=== PATIENT | female | born 1955 | race Caucasian/White ===

== ENCOUNTER 2024-04-09 11:12 | Outpatient (CLI) | payer MEDICARE, SELFPAY ==
[2024-04-09 12:07] LABS: Toxigenic C. Diff NEGATIVE (NEGATIVE)
[2024-04-14 09:29] LABS: Fecal Fat, Ql Normal (Normal)
[2024-04-16 18:24] LABS: Calprotectin, Stool 15 mcg/g
== END 2024-04-09 11:13 | disposition home or self-care (01) ==
PROVIDERS: PCP Family Medicine; Visit Provider Nurse Practitioner Family
DX: R19.7 Diarrhea, unspecified (principal)
CPT/HCPCS: 82653; 82705; 83993; 87045; 87269; 87427; 87449; 87493

== ENCOUNTER 2024-09-25 15:52 | Emergency (ER) | payer OTHER, SELFPAY ==
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
--- OUTSIDE RECORDS SUMMARY | 2024-09-25 15:55 | XMS_ITS | Encounter Summary ---
Author Organization [facility] Address [address] [place] [address] Care Team Providers Care Health And Nutrition Specialist Name Role Phone Jyoti Ma NP Primary Care Provider Gino Wynn MD Primary Care Provider [phone] Encounter Details Date Type Department Care Team (Late st Contact Info) Description 10/06/2016 Abstract [facility] CONVERSION [address] [place] [address] , Generic ConversionMD Social History Tobacco Use Types Packs/Day Years Used Date Smoking Tobacco: Never Assessed Comments Unknown Sex and Gender Information Value Date Recorded Sex Assigned at Not on file Legal Sex Female 6:43 PM CDT Gender Identity Not on file Sexual Orientation Not on file documented as of this encounter Plan of Treatment Not on file documented as of this encounter Visit Diagnoses Not on filedocumented in this encounter Additional Health Concerns Infection Onset Date Last Indicated Resolved Time COVID-19 Rule Out 08/10/2023 08/10/2023 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
--- OUTSIDE RECORDS SUMMARY | 2024-09-25 15:55 | XMS_ITS | Clinical Summary ---
Author Organization [facility] Address [address] [place] [address] Care Team Providers Care Jump Iron Machine Presser Name Role Phone Minoo Long MD Primary Care Provider [phone] Allergies No known active allergies Medications ALPRAZolam 0.25 MG tabletIndications: Anxiety,Reactive depression Take 1 tablet (0.25 mg total) by mouth 3 (three) times daily as needed. 30 tablet 1 2 Active azithromycin (ZITHROMAX) 250 MG tabletIndications: Pneumonia due to infectious organism, unspecified laterality, unspecified part of lung TAKE 2 TABS PO DAY 1 THEN 1 TABLET DAILY 6 tablet 4 Active albuterol sulfate HFA 108 (90 Base) MCG/ACT inhalerIndications :Pneumonia due to infectious organism, unspecified laterality, unspecified part of lung Inhale 2 puffs into the lungs every 6 (six) hours as needed for Wheezing or Shortness of breath. 18 g 1 4 Active atorvastatin (LIPITOR) 20 MG tabletIndications: Hyperlipidemia, unspecified hyperlipidemia type take 1 tablet by mouth nightly at bedtime 90 tablet 1 4 Active FLUoxetine (PROZAC) 40 MG capsuleIndications :Anxiety,Reactive depression TAKE 1 CAPSULE BY MOUTH ONCE DAILY ALONG WITH A 20 MG CAPSULE FOR A TOTAL DAILY DOSE OF 60 MG 90 capsule 4 Active FLUoxetine (PROZAC) 20 MG capsuleIndications :Anxiety,Reactive depression TAKE 1 CAPSULE BY MOUTH ONCE DAILY ALONG WITH A 40 MG CAPSULE FOR A TOTAL DAILY DOSE OF 60 MG 90 capsule 4 Active Active Problems Problem Noted Date Diagnosed Date Right lower quadrant pain 06/05/2022 Overview (06/05/2022): Added automatically from request for surgery [id number] Encounter for screening colonoscopy 06/05/2022 Overview (06/05/2022): Added automatically from request for surgery [id number] Hyperlipidemia, unspecified hyperlipidemia type 02/01/2022 Pure hypercholesterolemia 08/18/2021 Acute pain of left shoulder 01/28/2021 Postmenopause 12/12/2017 Anxiety 03/09/2014 Hearing difficulty 01/19/2014 Nicotine dependence 08/19/2013 Immunizations Name Administration Dates Next Due Fluzone High Dose - >Age 65 (Prefilled Syringe) 05/11/2022 Influenza (Generic) 03/31/2020,04/11/2018 Influenza Adult (Generic) 04/19/2023,05/11/2022, 03/31/2020 PFIZER COVID-19 (ORIGINAL FO RMULATION, PURPLE CAP) mRNA, LNP-S, PF, 30 MCG/0.3 ML DOSE 09/21/2020,08/31/2020 Pneumococcal (Prevnar 20) 05/11/2022 Family History Medical History Relation Comments COPD Father Emphysema Father Heart Disease Father Parkinson's Disease Father COPD Mother Heart Disease Mother Kidney Disease Mother Relation Status Comments Father Mother Social History Tobacco Use Types Packs/Day Years Used Date Smoking Tobacco: Former Cigarettes 0.5 50 1 06/25/1971 - 04/25/2022 Smokeless Tobacco: Never Tobacco Cessation:Counseling Given: No Comments:not ready to quit Alcohol Use Standard Drinks/Week Comments Yes 0 (1 standard drink = 0.6 oz pur e alcohol) rarely once per year PHQ-2 Answer Date Recorded Patient Health Questionnaire-2 Score 1 12/12/2022 Comments No Sex and Gender Information Value Date Recorded Sex Assigned at Not on file Legal Sex Female 6:43 PM CDT Gender Identity Not on file Sexual Orientation Not on file Last Filed Vital Signs Vital Sign Reading Time Taken Comments Blood Pressure 103/69 08/10/2023 10:22 AM SENIOR RESIDENT CARE DIRECTOR Pulse 92 08/10/2023 10:22 AM SENIOR RESIDENT CARE DIRECTOR Temperature 37 C (98.6 F) 08/10/2023 10:22 AM SENIOR RESIDENT CARE DIRECTOR Respiratory Rate 16 08/10/2023 10:22 AM SENIOR RESIDENT CARE DIRECTOR Oxygen Saturation 98% 08/10/2023 10:22 AM SENIOR RESIDENT CARE DIRECTOR Inhaled Oxygen Concentration - - Weight 59 kg (130 lb) 08/10/2023 10:22 AM SENIOR RESIDENT CARE DIRECTOR Height 167.6 cm (5' 6 ) 08/10/2023 10:22 AM SENIOR RESIDENT CARE DIRECTOR Body Mass Index 20.98 08/10/2023 10:22 AM SENIOR RESIDENT CARE DIRECTOR Plan of Treatment Health Maintenance Due Date Last Done Comments Hepatitis C 1974 DTaP, Tdap and Td Vaccines (1 - Tdap) 1975 Zoster Vaccines (1 of 2) 2006 Annual Medicare Wellness Visit 2021 Dexa Scan (General) 2021 COVID-19 Vaccine (3 - season) 2024 09/21/2020, 08/31/2020 Influenza Adult (#1) 2024 04/19/2023, 05/11/2022, 05/11/2022, Additional history exists Mammogram Screening 06/13/2024 06/13/2022 PHQ-2 (Physician Inupiat) 06/25/2024 12/12/2022 RSV Immunization or 60+ Years (1 - 1-dose 75+ series) 2031 Colorectal Cancer Screening Colonoscopy (10 Years) 07/05/2032 07/05/2022, 07/05/2022 Pneumococcal Vaccine: 65+ Years Completed 05/11/2022 Meningococcal B Vaccine Aged Out No l onger eligible based on patient's age to complete this topic Meningococcal Vaccine Aged Out No raysa pam eligible based on patient's age to complete this topic RSV Immunizations Under 20 Months Aged Out No longer eligible based on patient's age to complete this topic Procedures Procedure Name Priority Date/Time Associated Diagnosis Comments COLONOSCOPY Routine 07/05/2022 8:00 AM SENIOR RESIDENT CARE DIRECTOR MG SCREENING W COSME THEE DIGI Routine 06/13/2022 9:38 AM SENIOR RESIDENT CARE DIRECTOR Encounter for screening mammogram for breast cancer from Last 3 Months or Most Recently Relevant to Health Maintenance Results * MG SCREENING W COSME THEE DIGI (06/13/2022 9:38 AM SENIOR RESIDENT CARE DIRECTOR) Anatomical Region Laterality Modality Breast Bilateral Mammography 06/13/2022 3:52 PM SENIOR RESIDENT CARE DIRECTOR Narrative 06/13/2022 3:58 PM SENIOR RESIDENT CARE DIRECTOR IMAGING STUDIES: Bilateral screening mammograms with computer-aided detection with 2-D and 3-D imaging. Tomosynthesis. DATE: 06/13/2022 9:24 AM HISTORY: screening for breast cancer . COMPARISON: 05/12/2011. TISSUE TYPE: The breast tissue is heterogeneously dense, which may obscure small masses. FINDINGS: 1. Moderate fibroglandular tissue pattern is present. Benign nodularity. Benign calcifications. 2. No malignant microcalfcifications, new dominant masses, or architectural distortion. 3. No skin thickening or nipple retraction. Axillary regions are within normal limits. IMPRESSION: 1. No mammographic evidence of malignancy. 2. Assessment: ACR BI-RADS 2 - BENIGN FINDING(S) 3 .Routine Screening Bilateral MQSA BI-RADS Categories: Category 0 - needs additional imaging evaluation. Category 1 - negative. Category 2 - benign findings. Category 3 - probably benign findings, but short interval follow-up is recommended. Category 4 - suspicious abnormality and biopsy should be considered though the lesion may well be benign. Category 5 - highly suggestive of malignancy and appropriate action should be taken. Category 6 - known biopsy-proven malignancy A) A negative report should not delay a biopsy if a dominant or clinically suspicious mass is present. B) Adenosis and dense breasts may obscure an underlying neoplasm. C) Study interpreted with computer aided detection. Ordered By: MINOO LONG Interpreted By: Goldy Paul, 06/13/2022 3:52 PM us Minoo Long MD MAMMO Final Resul t from Last 3 Months or Most Recently Relevant to Health Maintenance Insurance [employer] Care Teams Jump Iron Machine Presser Relationship Specialty Start [place] [id number] [place], [place] [id number] PCP - General FAMILY PRACTICE 08/20/19
--- OUTSIDE RECORDS SUMMARY | 2024-09-25 15:55 | XMS_ITS | Encounter Summary ---
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
--- OUTSIDE RECORDS SUMMARY | 2024-09-25 15:55 | XMS_ITS | Data Portability ---
Author Organization [facility] [place] Address [address] [place] [address] Assessment Encounter Date Assessment Date Assessment LastModified by Organization Details LastModified Time 11/08/2023 11/08/2023 Annual gynecological exam performed. Patient will come back in a year unless there are new symptoms. [email or web address] Not available 11/08/2023 10:24:00 Plan of Treatment Reminders Order Date Submit Date Provider Last Modified By Organization Details Last Modified Time Details Appointments None recorded. Lab None recorded. Referral None recorded. Procedures None recorded. Surgeries None recorded. Imaging DEXA, axial skeleton + vertebral fracture assessment 2023 [facility], [address], [place], [address], 05:01:27 MAMMO, diagnostic, digital, bilateral - bilateral breast tenderness, lump/tender ness on right breast around 12 oclock 2023 024 [facility], [address], [place], [address], 05:01:27 US, breast, bilateral 2023 024 EMELYN Not available 05:01:27 Medication Orders None recorded. Patient TargetsNo targets recorded. Patient InstructionsNo instructions recorded. Reason for Referral None Reported. Problems Name Problem SNOMED Code Status Onset Date Resolution Date Notes Provider Name and Address Organization Details Recorded Time Specializ ed medical examinati on Active 2013 Gynecologi emi Examinatio n;Recorded Elsewhere: No Locatio n: [facility]: EHR Chroni c: N Practice ID: 0001 Billa ble Time: 08:30:00 AM Not Available [facility] 0 22:01:[address] Concept Active 2014 Encntr for general adult medical exam w/o abnormal findings;R ecorded Elsewhere: No Locatio n: [facility]: EHR Chroni c: N Practice ID: [id number] Billa ble Time: 11:30:00 AM Not Available [facility] 0 22:01:14 Screening for malignant neoplasm of rectum Active 2011 Screening for malignant neoplasms of the rectum;Rec orded Elsewhere: No Locatio n: [facility]: EHR Chroni c: N Practice ID: 0001 Billa ble Time: 08:30:00 AM Not Available [facility] 0 22:01:14 Adult health examinati on Active 2013 ROUTINE MEDICAL EXAM;Recor ded Elsewhere: No Locatio n: [facility]: EHR Chroni c: N Practice ID: [id number] Billa ble Time: 08:30:00 AM Not Available [facility] 0 22:01:14 Microscop ic hematuria 351780873 Active 2011 MICROSCOPI C HEMATURIA; Recorded Elsewhere: No Locatio n: [facility]: EHR Chroni c: N Practice ID: [id number] Billa ble Time: 08:30:00 AM Not Available [facility] 0 22:01:14 Insomnia 600415178 Active 2011 Insomnia, Other;Mamadou rded Elsewhere: No Locatio n: [facility]: EHR Chroni c: N Practice ID: [id number] Billa ble Time: 10:30:00 AM Not Available [facility] 0 22:01:15 Screening for malignant neoplasm of cervix Active 2011 Screening for malignant neoplasms of the cervix;Rec orded Elsewhere: No Locatio n: [facility]: EHR Chroni c: N Practice ID: 0001 Billa ble Time: 08:30:00 AM Not Available [facility] 0 22:01:15 Depressiv e disorder 68284419 Active 2011 Depressive disorder, not elsewhere classified ;Practice ID: 0001 Not Available [facility] 0 22:01:[address] Concept Active 2014 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 Procedures Surgical History Date Name Laterality Status Provider Name and Address Organization Details Recorded Time 024 Date of Last Mammogram completed [facility] 11/08/2023 10:26:01 024 Date of Last Colonoscopy completed [facility] 11/08/2023 10:26:01 024 completed [facility] 11/08/2023 10:26:01 023 Colonoscopy completed [facility] 11/08/2023 10:31:42 998 Partial Hysterectomy completed [facility] 11/08/2023 10:31:35 cardiac catheterization completed MARSHALL Valerio [address], [place], [address], [facility] 11/08/2023 10:37:11 loop electrosurgical excision procedure completed MARSHALL Valerio [address], [place], [address], [facility] 11/08/2023 11:09:03 Imaging Results None recorded. Procedure Notes None recorded. Medical Equipment None Reported. Allergies No known drug allergies Medications Name Sig Start Date Stop Date Status Note LastModified by Organization Details LastModified Time fluoxetin e 40 mg capsule TAKE 1 CAPSULE BY MOUTH ONCE DAILY ALONG WITH A 20MG CAPSULE FOR A TOTAL DAILY DOSE OF 60MG 11/07 completed Not Available Not Available Not Available atorvasta tin 20 mg tablet TAKE 1 TABLET BY MOUTH NIGHTLY AT BEDTIME active Not Available Not Available No t Available azithromy gian 250 mg tablet TAKE 2 TABLETS BY MOUTH ON DAY 1, AND THEN TAKE 1 TABLET BY MOUTH ONCE A DAY ON DAY 2 THROUGH DAY 5 11/07 completed Not Available Not Available Not Available alprazola m 0.25 mg tablet active Not Available Not Available Not Available Metrogel Vaginal 0.75 % (37.5 mg/5 gram) insert 1 applicat orful (37.5MG) by vaginal route every day at bedtime 03/04 completed Prescrib ed Elsewher e: No [facility]at [facility] By: travis allen DateTime : 05/08/20 13 08:39:17 AM Not Available Not Available Not Available amitripty line 25 mg tablet take 1 tablet (25MG) by oral route every day at bedtime 11/28 completed Prescrib ed Elsewher e: No Locat ion: [facility] By: garrett lucia DateTime : 11/29/19 12 10:30:00 AM Not Available Not Available Not Available Glucosami ne 500 mg tablet 11/07 completed Prescrib ed Elsewher e: Yes Loca tion: [facility]ify By: garrett lucia DateTime : 11/28/19 12 10:36:17 PM Not Available Not Available Not Available albuterol sulfate HFA 90 mcg/actua tion aerosol inhaler INHALE 2 PUFFS BY MOUTH EVERY 6 HOURS NEEDED FOR WHEEZING FOR SHORTNES S OF BREATH active Not Available Not Available No t Available fluoxetin e 20 mg capsule TAKE 1 CAPSULE BY MOUTH ONCE DAILY ALONG WITH 40MG CAPSULE FOR TOTAL DAILY DOSE OF 60MG 11/07 completed Not Available Not Available Not Available Cymbalta 20 mg capsule,d elayed release take 1 capsule by oral route 2 times every day 11/28 completed Prescrib ed Elsewher e: Yes Loca [facility] By: garertt Del Castilloou nter DateTime : 11/28/19 12 10:36:17 PM Not Available Not Available Not Available Fish Oil 100 mg-160 mg-1,000 mg capsule 11/07 completed Prescrib dinesh crews: Yes Loca tion: [facility] odify By: travis allen DateTime : 02/19/20 08:30:00 AM Not Available Not Available Not Available fluoxetin e 60 mg tablet active Not Available Not Available Not Available Vitals Date Recorded Body weight Body mass index (BMI) Body height Systolic blood pressure Diastolic blood pressure Provider Name and Address Organization Details Last Updated DateTime 11/08/2023 25264.97 g 21.8 kg/m2 167.64 cm 136 mm[Hg] 76 mm[Hg] Mouna Santana [facility] 10:25:39 Social History Question Answer Notes LastModified by Organizat ion Details LastModified Time Tobacco Smoking Status Current Every Day Smoker Mounamarcell Santana null, [facility] 11/08/2023 10:31:19 What Is Your Level Of Alcohol Consumption? Occasional Information not available 11/08/2023 How Many Years Have You Consumed Alcohol? 45 Information not available 11/08/2023 Are You Blind Or Do You Have Difficulty Seeing? No Information not available 11/08/2023 What Is Your Level Of Caffeine Consumption? Heavy Information not available 11/08/2023 How Much Tobacco Do You Chew? None Information not available 11/08/2023 In The 14 Days Before Symptom Onset, Have You Had Close Contact With A Laboratory-confir med COVID-19 While That Case Was Ill? No Information not available 11/08/2023 In The 14 Days Before Symptom Onset, Have You Had Close Contact With A Person Who Is Under Investigation For COVID-19 While That Person Was Ill? No Information not available 11/08/2023 Have You Been To An Area Known To Be High Risk For COVID-19? No Information not available 11/08/2023 Are You Deaf Or Do You Have Serious Difficulty Hearing? Yes Information not available 11/08/2023 What Type Of Diet Are You Following? REGULAR Information not available 11/08/2023 What Is The Highest Grade Or Level Of School You Have Completed Or The Highest Degree You Have Received? [id number] Information not available 11/08/2023 What Is Your Occupation? Retired Information not available 11/08/2023 Are There Any Guns Present In Your Home? No Information not available 11/08/2023 Do You Use Protection During Sex? No Information not available 11/08/2023 Do You Use Your Seat Belt Or Car Seat Routinely? Yes Information not available 11/08/2023 Do You Have Smoke And Carbon Monoxide Detectors In Your Home? Yes Information not available 11/08/2023 At What Age Did You Start Smoking Tobacco? 17 Information not available 11/08/2023 How Much Tobacco Do You Smoke? 1 PPD Information not available 11/08/2023 Do You Feel Stressed (tense, Restless, Nervous, Or Anxious, Or Unable To Sleep At Night)? [id number] Information not available 11/08/2023 Do You Use Any Illicit Or Recreational Drugs? No Information not available 11/08/2023 Do You Use Sunscreen Routinely? No Information not available 11/08/2023 How Many Years Have You Smoked Tobacco? 50 Information not available 11/08/2023 Have You Used IV Drugs? No Information not available 11/08/2023 Sex: Unknown Functional Status Question Answer Note LastModified by Organizat ion Details LastModified Time Are you able to walk? YESWOREST Information not available 11/08/2023 What is your exercise level? Occasional Information not available 11/08/2023 Mental Status None recorded. Family History Relationship Description Onset Age of this Age Resolved Age Notes LastModified by Organization Details LastModified Time Mother Heart disease Not available 2023 10:25:46 Mother Kidney disease Not available 2023 10:25:46 Sister Malignant tumor of breast formerly [email or web address] Not available 2023 10:25:46 Father [facility] Not available 2023 10:25:46 Father [facility] Not available 2023 10:25:46 Notes:Father: COPD, Emphysem a, Parkinson's disease, blood clots, Hypertension, Coronary artery disease Mother: pacemaker, Anemia, Hypertension Medical History Condition Response Anxiety Disorder Y Heart Problems Y Other Y High Cholesterol Y Gynecological History Statement/Question Response Date of Last Mammogram 08/29/2023 Date of LMP 08/14/1997 On BCP's at Conception? N N Was last menstrual period normal N STIs/STDs N HPV Vaccine N Colposcopy Current Control Method None Age at First Child 45 Date of Last Colonoscopy 08/10/2023 Sexually Active? N Date of DEXA bone scan Age of first menstrual cycle 10 Date of Last Pap Smear Sexual Problems? N LMP Definite 08/02/2023 N Obstetrics History GPAL:G 4 P 0 0 0 4 Type Value Living 4 Total 4 Past Encounters Encounter ID Performer Location Encounter Start Date Encounter Closed Date Diagnosis/Indication Diagnosis SNOMED-CT Code Diagnosis ICD10 Code Diagnosis Note [id number] [facility]er[facility] [address] [address] 11/08/2023 10:17:59 11/08/2023 11:28:51 Gynecologic examination 82298380 Z01.419 WWEpap updateddec lined STI screenmamm ogram UTDcolonos copy UTDroutine labs UTD/PCPdex a ordered - encouraged to schedule Take Calcium with Vitamin D daily.Do monthly self breast exams.It is advised to get annual flu shot in the fall and she could obtain at [facility] or [facility] care clinic. If you haven't received the Tdap vaccine in the last 10 years you should obtain one as well.Have mammogram yearly, bone density every 2-3 years and stay up to date on colon cancer screening .Engage in regular exercise. Avoid tobacco and illicit drugs. This lifestyle behavior pattern will lead to less health conditions and longer life span. If BMI greater than 25 dietary consult advised.Qu estions have been answered. Patient appears to understand instructio ns, but if you have any further questions call or respond to this email Breast tenderness 059169 07 N64.4 bilateral diagnostic mammogram w/ u/s ordered Screening for osteoporosis 332459341 Z13.820 Increased frequency of urination 110910698 R35.0 recommende d decreasing consumptio n of bladder irritants (reducing amount of coffee/tea intake). RTC if symptoms persist or additional symptoms occur Health Concerns Section Related Observation LastModified by Organization Detai ls LastModified Time None Recorded Concern Status LastModified by Organization Details LastModified Time None Recorded Advance Directives Directive None Recorded Payers Encounter Date Sequence Insurance Name Policy Number Policy Wray Covered Member ID Wray Member ID Guarantor Name 11/08/2023 1 [employer] (MEDICARE REPLACEMENT PPO) Delilah Monteiro [id number] Delilah Monteiro Notes Date Note Type Note Provider Name and Address Organization Details Recorded Time 11/08/2023 text/html 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 Post-MenopausalRe ported bypatient.Menopau cesia Symptoms:no menopausal symptoms; normal vaginal lubrication Vaginal Bleeding:history of menopause having occurred; no history of post menopausal bleeding Urinary Symptoms:no hematuria; no incontinence; no nocturia;urinary frequency: times during the day Vulva:no genital lesion; no vulvar atrophy Vagina:normal vaginal discharge; no vaginal atrophy Breast:no breast lump; no nipple discharge; no breast pain Sexual Complaints:no sexual complaints Psychological Symptoms:no depression; no anxiety Preventive Measures:encourag e regular mammograms starting age 40; encourage self breast examination; encourage regular exercise; encourage no tobacco use; mammogram performed within the past year; history of recent colonoscopy; needs to schedule bone densityNotes:68yo [id number] hysterectomy, one ovary remains, done in 1997. Hyst done for abnormal pap smears/precancero us cells per pt. Hx of procedure prior to hyst for abnormal paps.all paps normal after hyst per pt, last pap 7 yrs agonot currently SA, spouse has mammogram UTD : 08/2023sister with BC at age 68colonoscopy UTD: 08/10/2023exa: many years ago Bilateral breast tenderness for the past 2 months. Did notice a right breast lump a few weeks ago.Urinary frequency, drinks tea and coffee all day long - about a pot of coffee a day and teaneg dysuria, incontinence, or flank painsshe is a tobacco smoker she adopted her grandsons, 6 and 8 yr old boys Ladi Fagan, WHNP [address], [place], [address], [facility] 11/08/2023 11:20:23 OBGyn Episode Ob Episode Information Episode Created Date Number of Fetuses Patient Bloodtype Patient rh Status Prepregnancy Weight lbs Domestic Partner Domestic Partner Phone Father Name [employer] Teammate Status 11/08/19 24 1 CLOSED Fetus Data First Name Last Name Admitted to NICU Weight (g) Sex Living Outcome Pediatric Complications Fetus ID Race Codes Race Delivery Type M Full Term [id number] Vaginal Delivery Ochoa Calculation Initial Ochoa Date Initial Exam Date Initial Exam Provider Initial Ultrasound Date Last Menstrual Period Date Ultra Sound Weeks Gestation 0 Eighteen To Twenty Week Ochoa Update Ultra Sound Date Fundal Height At Umbil Quickening Date Ultra Sound Latest Weeks Gestation Final Ochoa Confirmed By Final Ochoa Confirmed Date Final Ochoa Date Ultra Sound Latest Days Gestation 0 0 Menstrual History Last Menstrual Date Menses Monthly On Bcp Conception Prior Menses Frequency Hcg Plus Date Menarche Onset Age Delivery Information Delivery Date Delivery Type Labor Anesthesia Weeks Gestation Incision Type Labor Labor Length Hrs Delivered By Post Complications Tubal Sterilization Discharge Date Comments 3 Discharge Information Feeding Method Contraceptive Method Maternal HG B and HCT Levels Ob Episode Information Episode Created Date Number of Fetuses Patient Bloodtype Patient rh Status Prepregnancy Weight lbs Domestic Partner Domestic Partner Phone Father Name [employer] Teammate Status 11/08/19 24 1 CLOSED Fetus Data First Name Last Name Admitted to NICU Weight (g) Sex Living Outcome Pediatric Complications Fetus ID Race Codes Race Delivery Type F Full Term [id number] Vaginal Delivery Ochoa Calculation Initial Ochoa Date Initial Exam Date Initial Exam Provider Initial Ultrasound Date Last Menstrual Period Date Ultra Sound Weeks Gestation 0 Eighteen To Twenty Week Ochoa Update Ultra Sound Date Fundal Height At Umbil Quickening Date Ultra Sound Latest Weeks Gestation Final Ochoa Confirmed By Final Ochoa Confirmed Date Final Ochoa Date Ultra Sound Latest Days Gestation 0 0 Menstrual History Last Menstrual Date Menses Monthly On Bcp Conception Prior Menses Frequency Hcg Plus Date Menarche Onset Age Delivery Information Delivery Date Delivery Type Labor Anesthesia Weeks Gestation Incision Type Labor Labor Length Hrs Delivered By Post Complications Tubal Sterilization Discharge Date Comments 8 Discharge Information Feeding Method Contraceptive Method Maternal HG B and HCT Levels Ob Episode Information Episode Created Date Number of Fetuses Patient Bloodtype Patient rh Status Prepregnancy Weight lbs Domestic Partner Domestic Partner Phone Father Name [employer] Teamm[employer] Status 11/08/19 24 1 CLOSED Fetus Data First Name Last Name Admitted to NICU Weight (g) Sex Living Outcome Pediatric Complications Fetus ID Race Codes Race Delivery Type F Full Term [id number] Vaginal Delivery Ochoa Calculation Initial Ochoa Date Initial Exam Date Initial Exam Provider Initial Ultrasound Date Last Menstrual Period Date Ultra Sound Weeks Gestation 0 Eighteen To Twenty Week Ochoa Update Ultra Sound Date Fundal Height At Umbil Quickening Date Ultra Sound Latest Weeks Gestation Final Ochoa Confirmed By Final Ochoa Confirmed Date Final Ochoa Date Ultra Sound Latest Days Gestation 0 0 Menstrual History Last Menstrual Date Menses Monthly On Bcp Conception Prior Menses Frequency Hcg Plus Date Menarche Onset Age Delivery Information Delivery Date Delivery Type Labor Anesthesia Weeks Gestation Incision Type Labor Labor Length Hrs Delivered By Post Complications Tubal Sterilization Discharge Date Comments 7 Discharge Information Feeding Method Contraceptive Method Maternal HG B and HCT Levels Ob Episode Information Episode Created Date Number of Fetuses Patient Bloodtype Patient rh Status Prepregnancy Weight lbs Domestic Partner Domestic Partner Phone Father Name [employer] Teammate Status 11/08/19 24 1 CLOSED Fetus Data First Name Last Name Admitted to NICU Weight (g) Sex Living Outcome Pediatric Complications Fetus ID Race Codes Race Delivery Type F Full Term [id number] Vaginal Delivery Ochoa Calculation Initial Ochoa Date Initial Exam Date Initial Exam Provider Initial Ultrasound Date Last Menstrual Period Date Ultra Sound Weeks Gestation 0 Eighteen To Twenty Week Ochoa Update Ultra Sound Date Fundal Height At Umbil Quickening Date Ultra Sound Latest Weeks Gestation Final Ochoa Confirmed By Final Ochoa Confirmed Date Final Ochoa Date Ultra Sound Latest Days Gestation 0 0 Menstrual History Last Menstrual Date Menses Monthly On Bcp Conception Prior Menses Frequency Hcg Plus Date Menarche Onset Age Delivery Information Delivery Date Delivery Type Labor Anesthesia Weeks Gestation Incision Type Labor Labor Length Hrs Delivered By Post Complications Tubal Sterilization Discharge Date Comments 0 Discharge Information Feeding Method Contraceptive Method Maternal HG B and HCT Levels
[2024-09-25 15:59] VITALS: BP 136/74; PULSE 77; RESP 18; TEMP 36.7; O2SAT 95
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
[2024-09-25] MEDS: KETOROLAC 30 MG/ML VIAL (*BKC) IM (16:20)
--- NOTE | 2024-09-25 16:57 | PC.NURSE ---
On 09/25/24, the student, [MAIKEL ESCOBAR], provided care and completed [facility] documentation on this patient. I have reviewed the student's documentation and agree with the findings.
== END 2024-09-25 16:56 | disposition home or self-care (01) ==
PROVIDERS: Emergency Provider Emergency Medicine; PCP Nurse Practitioner Family
DX: S16.1XXA Strain of muscle, fascia and tendon at neck level, initial encounter (principal); Z87.891 Personal history of nicotine dependence; V89.2XXA Person injured in unspecified motor-vehicle accident, traffic, initial encounter
CPT/HCPCS: 72040; 96372; 99283; J1885

== ENCOUNTER 2024-09-30 08:35 | Outpatient (CLI) | payer MEDICARE, SELFPAY ==
--- NOTE | ~2024-09-30 | XR_ITS ---
AP view of the pelvis and AP and lateral views of the left hip Clinical history: Pain Findings: No acute fracture or dislocation is seen. Osseous alignment is anatomic. Bilateral hip and SI joint spaces are preserved. Soft tissues are unremarkable. Impression: No significant abnormality is seen. Reviewed, dictated and finalized at [facility]. Impression: No significant abnormality is seen.
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
--- OUTSIDE RECORDS SUMMARY | 2024-09-30 08:47 | XMS_ITS | Clinical Summary ---
Author Organization [facility] Address [address] [place] [address] Care Team Providers Care Dyehouse Worker Name Role Phone Minoo Long MD Primary Care Provider [phone] Allergies No known active allergies Medications ALPRAZolam [...] (06/05/2022): Added automatically from request for surgery [id number] Encounter for screening colonoscopy 06/05/2022 Overview (06/05/2022): Added automatically from request for surgery [id number] Hyperlipidemia, unspecified hyperlipidemia type 02/01/2022 Pure hypercholesterolemia [...] Comments Blood Pressure 103/69 08/10/2023 10:22 AM PLATING AND POINT ASSEMBLY SUPERVISOR Pulse 92 08/10/2023 10:22 AM PLATING AND POINT ASSEMBLY SUPERVISOR Temperature 37 C (98.6 F) 08/10/2023 10:22 AM PLATING AND POINT ASSEMBLY SUPERVISOR Respiratory Rate 16 08/10/2023 10:22 AM PLATING AND POINT ASSEMBLY SUPERVISOR Oxygen Saturation 98% 08/10/2023 10:22 AM PLATING AND POINT ASSEMBLY SUPERVISOR Inhaled Oxygen Concentration - - Weight 59 kg (130 lb) 08/10/2023 10:22 AM PLATING AND POINT ASSEMBLY SUPERVISOR Height 167.6 cm (5' 6 ) 08/10/2023 10:22 AM PLATING AND POINT ASSEMBLY SUPERVISOR Body Mass Index 20.98 08/10/2023 10:22 AM PLATING AND POINT ASSEMBLY SUPERVISOR Plan of Treatment Health Maintenance Due Date Last Done Comments Hepatitis C 1974 DTaP, Tdap and Td Vaccines ( 1 - Tdap) 1975 Zoster Vaccines (1 of 2) 2006 Annual Medicare Wellness Visit 2021 Dexa Scan (General) 2021 COVID-19 Vaccine (3 - 2023-2 5 season) 2024 09/21/2020, 08/31/2020 Mammogram Screening 06/13/2024 06/13/2022 PHQ-2 (Physician Purcell) 06/25/2024 12/12/2022 RSV Immunization or 60+ Years [...] 20 Months Aged Out No longer eligible b ased on patient's age to complete this topic Procedures Procedure Name Priority Date/Time Associated Diagnosis Comments COLONOSCOPY Routine 07/05/2022 8:00 AM PLATING AND POINT ASSEMBLY SUPERVISOR MG SCREENING W COSME THEE DIGI Routine 06/13/2022 9:38 AM PLATING AND POINT ASSEMBLY SUPERVISOR Encounter for screening mammogram for breast cancer from Last 3 Months or Most Recently Relevant to Health Maintenance Results * MG SCREENING W COSME THEE DIGI (06/13/2022 9:38 AM PLATING AND POINT ASSEMBLY SUPERVISOR) Anatomical Region Laterality Modality Breast Bilateral Mammography 06/13/2022 3:52 PM PLATING AND POINT ASSEMBLY SUPERVISOR Narrative 06/13/2022 3:58 PM PLATING AND POINT ASSEMBLY SUPERVISOR IMAGING STUDIES: Bilateral screening mammograms with computer-aided [...] Interpreted By: Goldy Paul, 06/13/2022 3:52 PM Minoo Long MD MAMMO Final Resul t from Last 3 Months or Most Recently Relevant to Health Maintenance Insurance [employer] Care Teams Dyehouse Worker Relationship Specialty [place] [address] [place] [address] PCP - General FAMILY PRACTICE 08/20/19
--- OUTSIDE RECORDS SUMMARY | 2024-09-30 08:47 | XMS_ITS | Encounter Summary ---
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
--- OUTSIDE RECORDS SUMMARY | 2024-09-30 08:47 | XMS_ITS | Encounter Summary ---
Author Organization [facility] Address [address] [place] [address] Care Team Providers Care Die Designer Name Role Phone Jyoti Ma NP Primary Care Provider Gino Wynn MD Primary Care Provider [phone]- [phone] Encounter Details Date Type Department Care Team (Latest Contact Info) Description 04/30/2018 Abstract [facility] Candy Zamora MD Social History [...] Rule Out 08/10/2023 08/10/2023 08/10/2023 10:44 AM FINANCIAL WRITER documented as of this encounter Care Teams Die Designer Relationship Specialty Start Date End Date Jyoti Ma NP PCP - General NURSE PRACTITIONER 04/11/18 08/19/19 [place] [address] [place] [address] PCP - General FAMILY PRACTICE 08/20/19 documented as of this encounter
== END 2024-09-30 08:36 | disposition home or self-care (01) ==
PROVIDERS: PCP Family Medicine; Visit Provider Nurse Practitioner Family
DX: S79.912A Unspecified injury of left hip, initial encounter (principal)
CPT/HCPCS: 72100; 73502